=== PATIENT | male | born 1940 | race Caucasian/White ===

== ENCOUNTER 2020-03-22 07:14 | Outpatient (CLI) | payer MEDICARE, OTHER, SELFPAY ==
--- NOTE | 2020-03-22 07:15 | XR_ITS ---
WS: [id number] XR KUB [id number] REASON FOR EXAM: STONE FINDINGS: There is evidence of postop changes along the L4-5-S1 vertebra as on the right. With spacer s between L4-5, L5-S1. There is gas overriding the kidneys stones are not definitely seen. There is no stones in the region of the ureters or bladder. XR/XR KUB [id number] IMPRESSION: No definite stones are identified.
== END 2020-03-22 07:15 | disposition home or self-care (01) ==
LOC: RAD 07:19
PROVIDERS: PCP Family Medicine; Visit Provider Nurse Practitioner Family
DX: N20.0 Calculus of kidney (principal)
CPT/HCPCS: 74018; 81001

== ENCOUNTER 2020-04-04 10:15 | Outpatient (CLI) | payer MEDICARE, OTHER, SELFPAY ==
--- NOTE | 2020-04-04 10:15 | XRR_ITS ---
PROCEDURE INFORMATION: Exam: XR Abdomen, 1 View Exam date and time: 04/04/2020 10:43 AM Age: 79 years old Clinical indication: Condition or disease; Kidney or ureter condition; Calculus (stone) in ureter; Patient HX: Kidney stone check. Previous XR 03/22/20; Additional info: Stones TECHNIQUE: Imaging protocol: XR of the abdomen. Views: Frontal supine view of the abdomen. 1 View. COMPARISON: CR XR KUB [id number] 03/22/2020 7:32 AM FINDINGS: Gastrointestinal tract: No dilated gas-filled loops of bowel. Organs: No radiopaque renal or ureteral calculi are are visualized. Bones/joints: Prior lumbar spine fusion surgery. Multilevel disc degeneration in the lumbar spine. XR/XR KUB [id number] IMPRESSION: No radiopaque calculi visualized.
== END 2020-04-04 10:16 | disposition home or self-care (01) ==
LOC: RAD 10:18
PROVIDERS: PCP Family Medicine; Visit Provider Urology
DX: N20.1 Calculus of ureter (principal)
CPT/HCPCS: 74018; 81001

== ENCOUNTER 2020-04-16 14:03 | Outpatient (CLI) | payer MEDICARE, OTHER, SELFPAY ==
--- NOTE | 2020-04-16 14:30 | XRR_ITS ---
PROCEDURE INFORMATION: Exam: XR Abdomen, 1 View Exam date and time: 04/16/2020 2:24 PM Age: 79 years old Clinical indication: Condition or disease; Kidney or ureter condition; Calculus (stone) in ureter; Patient HX: Kidney stone follow up; Additional info: Ureteral calculus. Previous XR 04/04/20, 03/22/20 TECHNIQUE: Imaging protocol: XR of the abdomen. Views: Frontal supine view of the abdomen. 1 View. COMPARISON: CR XR KUB [id number] 04/04/2020 10:39 AM FINDINGS: Gastrointestinal tract: Normal. No bowel dilation. Bones/joints: Diffuse demineralization of the bones. Lumbar spinal hardware. Degenerative changes of the spine. XR/XR KUB [id number] IMPRESSION: No acute abnormality.
== END 2020-04-16 14:04 | disposition home or self-care (01) ==
PROVIDERS: PCP Family Medicine; Visit Provider Urology
DX: N20.1 Calculus of ureter (principal); N20.0 Calculus of kidney
CPT/HCPCS: 74018; 82365

== ENCOUNTER 2020-04-24 08:23 | Outpatient (CLI) | payer MEDICARE, OTHER, SELFPAY ==
--- NOTE | 2020-04-24 08:00 | CT_ITS ---
WS: [id number] CT ABDOMEN AND PELVIS NONCONTRAST HISTORY: KIDNEY STONE TECHNIQUE: Imaging performed through the abdomen and pelvis. Coronal and sagittal reformats are submi tted. All CT scans at [facility] use at least one of these dose optimization techniques: automated exposure control; mA and/or kV adjustment per patient size (includes targeted exams where d ose is matched to clinical indication); or iterative reconstruction. DLP: 1676.71 mGy.cm COMPARISON: 01/18/2017 Lower thorax: Chronic emphysema. Normal size heart. Small hiatal hernia. Liver: Normal size liver with several scattered hypodensities which are probably cysts. The largest i n the RIGHT lobe measures 2.5 cm. Gallbladder: Unremarkable. Pancreas: Normal. Spleen: Normal. Adrenal glands: Normal. Right kidney: Cortical atrophy with several cysts. Some of these cysts or low-attenuation some slight ly increased. No hydronephrosis. Nonobstructing 2 mm calcification in the lower pole. Stone within th e distal RIGHT ureter is no longer present. Left kidney: Normal size kidney with moderate perinephric stranding. No hydronephrosis. Nonobstructin g 4 mm calcification lower pole. Smaller calcification which is nonobstructing in the central pelvis. Previously described proximal ureteral calcifications are no longer present. Moderate atherosclerosis with no aneurysm. No free fluid, intraperitoneal air or significant lymphadenopathy. GI tract: Normal appendix. Mild diverticulosis. Abdominal wall: Intact. Pelvis: Markedly enlarged prostate gland measures 6.1 x 4.4 x 5.4 cm encroaching into the posterior u rinary bladder. Urinary bladder wall is diffusely thickened and hypertrophied. Small amount of fluid in the LEFT inguinal canal. Osseous structures: Straightening of the normal lumbar lordosis. Advanced degenerative changes in the facets and discs. Posterior lumbar fusion from L4 to S1. Interbody spacer at L4-5 and L5-S1. New com pression fracture of T12 since the prior CT of 01/18/2017 also new since the lumbar spine CT of 020. Compression fracture approximately 10%. CT/CT kidney stone [id number] IMPRESSION: 1. Resolved LEFT hydronephrosis. No residual calcifications in the proximal LE FT ureter. 2. Moderate to severe atrophy with acquired cysts RIGHT kidney with no residua l distal ureteral calcification. 3. Marked prostate gland enlargement with encroachment into the urinary bladde r. 4. New minimal compression fracture T12 since 03/13/2020. 5. Hepatic cysts and chronic emphysema.
== END 2020-04-24 08:24 | disposition home or self-care (01) ==
PROVIDERS: PCP Family Medicine; Visit Provider Urology
DX: N20.0 Calculus of kidney (principal); N26.1 Atrophy of kidney (terminal); Q61.02 Congenital multiple renal cysts; N40.0 Benign prostatic hyperplasia without lower urinary tract symptoms; M48.54XA Collapsed vertebra, not elsewhere classified, thoracic region, initial encounter for fracture; K76.89 Other specified diseases of liver; J43.9 Emphysema, unspecified; N20.1 Calculus of ureter
CPT/HCPCS: 74176; 81001

== ENCOUNTER 2021-04-29 13:29 | Outpatient (CLI) | payer MEDICARE, OTHER, SELFPAY ==
--- NOTE | 2021-04-29 13:45 | XR_ITS ---
WS: [id number] XR KUB [id number] REASON FOR EXAM: JOSEY RAL CALCULUS FINDINGS: No urinary tract calculi identified. Moderate amount of stool throughout the colon. Bowel gas pattern otherwise unremarkable. No free air or retroperitoneal air. No mass identified. Multilevel degenerative lumbar disc disease with previous surgery at L4-L5 and L5-S1. XR/XR KUB [id number] IMPRESSION: No urinary tract calculi identified.
== END 2021-04-29 13:30 | disposition home or self-care (01) ==
LOC: RAD 13:36
PROVIDERS: PCP Family Medicine; Visit Provider Urology
DX: N20.1 Calculus of ureter (principal)
CPT/HCPCS: 74018; 81003

== ENCOUNTER 2022-04-30 13:06 | Outpatient (CLI) | payer MEDICARE, OTHER, SELFPAY ==
--- NOTE | 2022-04-30 13:15 | XR_ITS ---
WS: [id number] Exam: XR KUB [id number] Date/Time of Exam: 04/30/2022 1:21 PM Reason For Exam: RENAL CALCULI Comparison 04/29/2021. No bowel obstruction or free air. Postoperative changes of the lower lumbar spine with hardware. No s ign of organ enlargement. 4 mm calcification superimposes the left kidney and may represent a renal s tone. Additional calcifications noted along the right and left paraspinal lumbar spine. These are non specific in appearance. Degenerative changes at all lumbar spine. XR/XR KUB [id number] IMPRESSION: 1. 4 mm calcification superimposing left kidney that may represent a renal ston e. 2. A of 10 x 5 mm calcification seen along the left paraspinal region at about the level of the L2-3 disc. This is nonspecific but this might represent a jv l pelvic or ureteral stone. 3. No acute finding.
== END 2022-04-30 13:07 | disposition home or self-care (01) ==
LOC: RAD 13:07
PROVIDERS: PCP Family Medicine; Visit Provider Urology
DX: N20.0 Calculus of kidney (principal); N40.1 Benign prostatic hyperplasia with lower urinary tract symptoms
CPT/HCPCS: 74018; 81003; 99213

== ENCOUNTER 2022-06-02 13:59 | Outpatient (CLI) | payer MEDICARE, OTHER, SELFPAY ==
--- NOTE | 2022-06-02 14:10 | XR_ITS ---
WS: [id number] Exam: XR KUB [id number] Date/Time of Exam: 06/02/2022 2:12 PM Reason For Exam: N20.0 - Calculus of kidney Comparison 04/30/2022. No bowel obstruction or free air. 4 mm calcification superimposes the left kidn ey and may represent a renal stone. A second 10 x 2 mm calcification along the left paraspinal region at the level of the L2-3 disc is nonspecific and unchanged in location. No sign of organ enlargement . Postoperative changes with hardware of the lower lumbar and upper sacral spine. Degenerative change s of the lumbar spine. XR/XR KUB [id number] IMPRESSION: 1. 4 mm calcification superimposing left kidney that may represent a renal ston e. A second 10 x 2 mm calcification along the left paraspinal region is unchang ed in location. 2. No acute abdominal process. Additional chronic nonemergent findings as above .
== END 2022-06-02 14:00 | disposition home or self-care (01) ==
LOC: RAD 14:00
PROVIDERS: PCP Family Medicine; Visit Provider Urology
DX: N40.1 Benign prostatic hyperplasia with lower urinary tract symptoms (principal); N26.1 Atrophy of kidney (terminal)
CPT/HCPCS: 74018; 81003; 99213

== ENCOUNTER 2022-06-26 08:20 | Outpatient (CLI) | payer MEDICARE, OTHER, SELFPAY ==
--- NOTE | 2022-06-26 08:30 | CT_ITS ---
WS: [id number] CT ABDOMEN PELVIS TECHNIQUE: Noncontrast CT of the abdomen and pelvis with coronal and sagittal reformatted images. CLINICAL INFORMATION: Renal Calculi COMPARISON: CT April 24, 2020 DLP: 1108.[address] scans at [facility] use at least one of these dose optimization techniques: automated e xposure control; mA and/or kV adjustment per patient size (includes targeted exams where dose is matc hed to clinical indication); or iterative reconstruction. FINDINGS: Moderate LEFT hydronephrosis with obstructing calculus at the UPJ. UPJ calculus measures 6 mm in shor t axis dimension. Inflammatory stranding and edema about the LEFT renal pelvis. LEFT calyceal tip collin culi. Distal LEFT ureter is decompressed. Atrophic RIGHT kidney. Bilateral renal cysts. No obstructing RIGHT renal or ureteral calculi. Bilater al renal cysts largest in the RIGHT upper pole measuring 4.0 x 3.9 CM. Lung bases are well aerated. Prostate measures 4.6 x 5.0 CM. Prostate calcification. Bladder wall thi ckening. Incidental stable hepatic cysts. Gallbladder is contracted. Small esophageal hiatal hernia. Fatty atr ophy of the pancreas. Normal noncontrast spleen. Normal caliber abdominal aorta. Aortic calcification . Adrenal glands are normal. Small amount of fluid along the LEFT inguinal canal. Sigmoid diverticulo sis. Normal appendix in the RIGHT lower quadrant. Postoperative changes pedicle screw fixation L4-S1 with interbody fusion. Advanced disc space narrowi ng L1-L2. CT/CT kidney stone [id number] IMPRESSION: 1. Moderate LEFT hydronephrosis. Obstructing 6.0 x 5.2 x 9.4 mm mm calculus at the LEFT UPJ. Small amount of inflammatory stranding and edema about the UPJ a nd renal pelvis. Distal LEFT ureter is decompressed. 2. RIGHT renal atrophy. Bilateral renal cysts largest on the RIGHT measuring 4 .0x3.9 cm. 3. Stable incidental hepatic cysts. 4. Small esophageal hiatal hernia. 5. Enlarged heterogeneous prostate measuring 4.6 x 5.0 cm.Recommend correlatio n PSA. Chronic bladder outlet obstruction. 6. No other acute findings.
== END 2022-06-26 08:21 | disposition home or self-care (01) ==
LOC: RAD 08:20
PROVIDERS: PCP Family Medicine; Visit Provider Urology
DX: N20.1 Calculus of ureter (principal); N40.1 Benign prostatic hyperplasia with lower urinary tract symptoms
CPT/HCPCS: 74176; 99214

== ENCOUNTER 2022-07-15 05:44 | Day surgery (SDC) | payer MEDICARE, OTHER, SELFPAY ==
[2022-07-10 10:26] VITALS: BMI 33.3
--- NOTE | 2022-07-10 10:50 | ECG_ITS ---
[facility] Test Date: 2022-07-10 Pat Name: Oj Retana Department: Room: Gender: Male Librarian: : 1940 Requested By: Sosa Sanchez Order Number: [id number] Beulah MD: Joe Levin M.D. Measurements Intervals [place] Rate: 73 P: 72 IL: 176 QRS: -75 QRSD: 179 T: 85 QT: 444 QTc: 491 Interpretive Statements ELECTRONIC VENTRICULAR PACEMAKER Compared to ECG 01/19/2017 10:58:51 Sinus rhythm no longer present Right bundle-branch block no longer present Left anterior fascicular block no longer present Electronically Signed On 07-10-2022 14:49:01 CDT by Joe Levin M.D. [id number]
[2022-07-10 10:54] LABS: Basophils % 0.3 %; Eosinophils # 0.3 10^3/uL (0.0-0.8); Hematocrit 39.3 % (42.0-52.0); Hemoglobin 13.3 g/dL (11.7-16.6); Lymphocytes # 1.8 10^3/uL (0.8-4.8); Mean Corpuscular HGB Conc 33.8 g/dL (30.0-36.0); Mean Corpuscular Hemoglobin 33.6 pg (28.0-34.0); Mean Corpuscular Volume 99.2 fl (80-94); Mean Platelet Volume 9.3 fL (7.4-10.4); Monocytes # 0.7 10^3/uL (0.2-0.9); Monocytes % 9.6 %; Neutrophils # 4.53 10^3/uL (1.8-7.7); Neutrophils % 61.8 %; Nucleated Red Blood Cells % 0 %; Platelet Count 165 10^3/cmm (130-400); Red Blood Count 3.96 10^6/uL (4.1-5.3); Red Cell Distribution Width 12.3 % (12.1-15.1); White Blood Count 7.3 10^3/uL (4.0-10.0)
[2022-07-10 11:19] LABS: Alanine Aminotransferase 13 U/L (0-41); Albumin Level 3.4 g/dL (3.5-5.2); Alkaline Phosphatase 111 U/L (40-130); Aspartate Amino Transferase 14 U/L (0-40); Blood Urea Nitrogen 14 mg/dL (8-23); Calcium 8.9 mg/dL (8.5-10.5); Carbon Dioxide 26 mmol/L (22-29); Chloride 105 mmol/L (98-107); Globulin 2.6 g/dL (1.3-4.6); Glucose 84 mg/dL (65-115); Osmolality Calculated 290 mOsm/kg (285-295); Sodium 140 mmol/L (136-145); Total Bilirubin 0.4 mg/dL (0.15-1.2)
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
[2022-07-15] VITALS (10 sets, daily range): BP systolic 110–131; BP diastolic 67–96; PULSE 68–87; RESP 12–18; TEMP 36.2–36.6; O2SAT 92–98
--- NOTE | 2022-07-15 | SCC_ITS ---
Procedure done: 1. Cystoscopy, LEFT: Retrograde, ureteroscopy, laser, stent 56.4 seconds of fluoroscopic guidance, for a cumulative dose of 15.4 mGy, was provided to Dr. Nguyen by the radiology department. C-arm images of the abdomen were saved for the patient's permanent record. [facility]
--- NOTE | 2022-07-15 05:51 | P.HPUD_ITS ---
Surgery/Procedure H&P Update DATE OF PROCEDURE: July 15, 2022 DATE H&P PERFORMED: 06/26/22 H&P UPDATE INFORMATION: I have reviewed H&P completed within last 30 days, I have examined patient prior to procedure, No changes to prior documentation and H&P is in [facility] EMR on date indicated PREOP DIAGNOSIS: Kidney stones PLANNED PROCEDURE: Operation Date: 07/15/22 07:00 Proposed Procedures p CYSTOSCOPY RETROGRADE URETEROSCOPY LASER STENT 06965 [id number] MODIFIER 26N20.9,N20.1(Not Applicable) - Simba Nguyen MD s Retrograde Pyelogram(Left) - MD isabel Uribe Ureteroscopy(Left) - MD isabel Uribe Laser Lithotripsy(Left) - MD isabel Uribe Ureteral Stent Placement(Left) - Simba Nguyen MD
--- NOTE | 2022-07-15 06:37 | P.ANESUD_ITS ---
Pre-Anesthetic Update Pre-Anesthetic Assessment: Date of Surgery/Procedure: 07/15/22 Preop Nery gnosis: Refractory left UPJ stone with obstruction Proposed Procedure: Operation Date: 07/15/22 07:00 Proposed Procedures p CYSTOSCOPY RETROGRADE URETEROSCOPY LASER STENT 43976 [id number] MODIFIER 26N20.9,N20.1(Not Applicable) - Simba Nguyen MD s Retrograde Pyelogram(Left) - MD isabel Uribe Ureteroscopy(Left) - MD isabel Uribe Laser Lithotripsy(Left) - MD isabel Uribe Ureteral Stent Placement(Left) - Simba Nguyen MD Any changes to Pre-Anesthetic Assessment?: No Last Intake: Intake Last Liquid Date 07/14/22 Last Liquid Time 23:30 Last Solid Date 07/14/22 Last Solid Time 23:30 Vitals: Temperature 97.9 F 07/15/22 06:13 Temperature Source Temporal Artery S can 07/15/22 06:13 Pulse Rate 81 07/15/22 06:13 Respiratory Rate 18 07/15/22 06:13 Blood Pressure 120/77 07/15/22 06:13 Blood Pressure Kelley n 91 07/15/22 06:13 Pulse Oximetry 95 07/15/22 06:13 Oxygen Delivery Me thod 07/15/22 06:16 Exam: Pre-Anes Outpt Exam: alert, oriented x 3, clear to auscultation bilaterally and regular rate & rhythm Cardiac Studies: No Data to Display
[2022-07-15] MEDS: sodium chloride 0.9% 1,000 ML 30 ML IV (06:42)
--- NOTE | 2022-07-15 06:43 | SC_ITS ---
WS: [id number] INTRAOPERATIVE TECHNIQUE: 3 Spot fluoroscopic images for intraoperative purposes. FLUOROSCOPY TIME: 56.4 seconds CLINICAL INFORMATION: ureteral stone COMPARISON: None. FINDINGS: LEFT ureterogram with deployment of double-J ureteral stent. Previously described obstructing 6 mm pr oximal ureteral calculus. SC/C-arm FL for Urology IMPRESSION: Images obtained for intraoperative purposes.
--- NOTE | 2022-07-15 06:58 | P.OP_ITS ---
Operative Report Date of procedure: July 15, 2022 Pre-op diagnosis: Refractory left UPJ stone with obstruction Post-op diagnosis: Refractory left UPJ stone with obstruction Procedure done: 1. Cystoscopy, LEFT: Retrograde, ureteroscopy, laser, stent Implants: Left ureteral stent Specimens removed/disposition: Stone fragments Pathology: Stone fragments Surgeon: Wendy Estimated blood loss: Minimal Urine output: Not measured Complications: None Findings: Anesthesia: General Condition: Stable Disposition: PACU Intraoperative findings: * Stone was impacted in the left proximal ureter but completely cleared with laser lithotripsy * Second stone which was located in the lower pole calyx was also completely fragmented utilizing flexible ureteroscopy. Brief History: Mr. Pabon is a very pleasant 81-year-old white male recently diagnosed with a large left UPJ stone with obstructive changes. Also has a small left lower pole stone located posteriorly in the kidney discussed all options and ultimately elected endoscopic treatment Procedure: After routine preoperative evaluation examination and obtaining of informed consent was taken to the operating suite on 07/15/2022 where general anesthesia was administered without difficulty after appropriate timeout was performed, SCDs confirmed to be functioning, preoperative antibiotics administered, beta- amando protocol confirmed. Prepped and draped in usual sterile fashion dorsolithotomy position paying careful attention to avoiding pressure points. 21 Singaporean cystoscope with 30 degree lens was introduced into the urethra meatus and advanced into the bladder to videoscopy. Bladder was systematically examined. No stones were seen. No gross abnormalities identified. An 8 Singaporean cone-tip catheter was intubated to the left ureteral orifice for left retrograde ureteropyelogram demonstrating: Flexible tip guidewire was then advanced up the left ureter easily bypassing the stone and curling in the area of the upper pole calyx. The distal ureter was then dilated with a 15 Singaporean 4 cm balloon with no waist. A second guidewire was then passed. The first wire was secured to the drapes as a safety wire and the second uses a working wire. A 38 cm ureteral access sheath was easily advanced up the working wire to just below the level of the stone. The inner sheath was removed and the 7 Singaporean offset semirigid ureteroscope was advanced up the ureteral access sheath over the guidewire. The stone was encountered in expected position and the wire was removed. 365 ?m thulium superpulse laser fiber was utilized to fragment the stone to small pieces. There was adherence of the stone to the anterior aspect of the ureter at the location. There was a lot of inflammation in the ureter as well. All of the stone was freed up from the ureter. Some of the migrated into the renal pelvis. The offset scope was exchanged for a flexible scope which was advanced through the sheath into the renal pelvis and any fragments that had migrated up of any consequence and size were then fragmented in the renal pelvis and some of the calyces. The stone in the lower posterior aspect calyx was identified and fragmented as well. All the calyces were carefully inspected and no significant fragments remained. Mostly sand and very tiny pieces. There was minimal bleeding. Visualization was very good. The sheath was then backloaded onto the hub of the scope and the ureter was carefully inspected as the scope was removed. The impaction site of the stone was free of all debris and stone fragments. It was deemed that this area would require stent for healing purposes. The remainder of the ureter was fine. Cystoscope was then backloaded over the safety guidewire and a 7 Singaporean by 26 mm double-pigtail stent was advanced over the guidewire through the cystoscope into appropriate position as confirmed via fluoroscopy and cystoscopy. Bladder was drained. Stent was confirmed to be functioning. He tolerated procedure well without complications and was awakened in the operating room and returned to PACU in stable condition. PLANS: 1. Anticipate discharge from outpatient surgery 2. Maintain stent for 2 weeks and then removal in my office. 3. KUB before stent removal on day of clinic visit
[2022-07-15] MEDS: levofloxacin-dextrose 5 % 500 MG/100 ML PREMIX 100 MG IV (07:00)
--- NOTE | 2022-07-15 13:51 | ANE.PACU2 ---
Inpatient post-anesthesia follow up: Airway intact: Yes Vital signs: Temperature 97.9 F Pulse Rate 78 Respiratory Rate 16 Blood Pressure 126/96 Pulse Oximetry 95 Oxygen Delivery Me thod Room Air Oxygen Flow Rate 3 Fraction of Inspir ed Oxygen Hydration adequate: Yes Nausea and vomiting: No Pain level: 1 Mental status: Baseline
[2022-07-21 18:26] LABS: Stone Source URETERAL STONE
== END 2022-07-15 09:30 | disposition home or self-care (01) ==
PROVIDERS: PCP Family Medicine; Visit Provider Urology
PROC: 0TJB8ZZ Inspection of Bladder, Via Natural or Artificial Opening Endoscopic (ICD-10-PCS; CPT 52000; principal; 2022-07-15 07:00)
PROC: (CPT 74420; 2022-07-15 07:00)
PROC: 0TJ98ZZ Inspection of Ureter, Via Natural or Artificial Opening Endoscopic (ICD-10-PCS; CPT 52351; 2022-07-15 07:00)
PROC: (CPT 52356; 2022-07-15 07:00)
PROC: (CPT 50605; 2022-07-15 07:00)
DX: N20.1 Calculus of ureter (principal); J44.9 Chronic obstructive pulmonary disease, unspecified; G47.30 Sleep apnea, unspecified; Z95.0 Presence of cardiac pacemaker; I25.10 Atherosclerotic heart disease of native coronary artery without angina pectoris; Z95.5 Presence of coronary angioplasty implant and graft; I10 Essential (primary) hypertension; I25.2 Old myocardial infarction; N40.0 Benign prostatic hyperplasia without lower urinary tract symptoms; K21.9 Gastro-esophageal reflux disease without esophagitis; E78.5 Hyperlipidemia, unspecified; F03.90 Unspecified dementia, unspecified severity, without behavioral disturbance, psychotic disturbance, mood disturbance, and anxiety; Z87.891 Personal history of nicotine dependence
CPT/HCPCS: 52356; 76000; 80053; 82365; 85025; 88300; 93005; C2625; J0330; J1100; J1956; J2370; J2405; J2704; J2710; J3010; J3490; J7030

== ENCOUNTER 2022-07-31 10:22 | Outpatient (CLI) | payer MEDICARE, OTHER, SELFPAY ==
--- NOTE | 2022-07-31 10:28 | XR_ITS ---
WS: [id number] Exam: XR KUB [id number] Date/Time of Exam: 07/31/2022 10:35 AM Reason For Exam: STONES No bowel obstruction or free air. A left-sided ureteral catheter is in place appearing to be in appro priate location. Fusion hardware noted in the lumbosacral spine. No sign of organ enlargement. Bony s tructures are otherwise intact. Degenerative changes of the L-spine. XR/XR KUB [id number] IMPRESSION: 1. No acute abdominal process. 2. Left-sided ureteral catheter in place appearing to be in appropriate locatio n. 3. Degenerative and postoperative changes in the lumbar spine.
== END 2022-07-31 10:23 | disposition home or self-care (01) ==
LOC: RAD 10:24
PROVIDERS: PCP Family Medicine; Visit Provider Urology
DX: N20.1 Calculus of ureter (principal); M47.896 Other spondylosis, lumbar region
CPT/HCPCS: 52310; 74018

== ENCOUNTER 2022-10-16 07:38 | Outpatient (CLI) | payer MEDICARE, OTHER, SELFPAY ==
--- NOTE | 2022-10-16 07:45 | XR_ITS ---
WS: [id number] XR KUB [id number] REASON FOR EXAM: Urolithiasis FINDINGS: The left ureteral stent is been removed. No ureteral calculi are identified. No other significant abnormality of the abdomen. Postoperative lumbar spine. XR/XR KUB [id number] IMPRESSION: Ureteral stent removal. No urinary tract calculi identified.
== END 2022-10-16 07:39 | disposition home or self-care (01) ==
LOC: RAD 07:39
PROVIDERS: PCP Family Medicine; Visit Provider Urology
DX: N40.1 Benign prostatic hyperplasia with lower urinary tract symptoms; N20.2 Calculus of kidney with calculus of ureter
CPT/HCPCS: 74018; 81003; 99213

== ENCOUNTER 2022-10-23 08:38 | Outpatient (CLI) | payer MEDICARE, OTHER, SELFPAY ==
--- NOTE | 2022-10-23 09:00 | CT_ITS ---
WS: [id number] CT ABDOMEN AND PELVIS NONCONTRAST HISTORY: Right Ureteral Calculus TECHNIQUE: Imaging performed through the abdomen and pelvis. Coronal and sagittal reformats are submi tted. All CT scans at [facility] use at least one of these dose optimization techniques: auto mated exposure control; mA and/or kV adjustment per patient size (includes targeted exams where dose is matched to clinical indication); or iterative reconstruction. DLP: 797.49 mGy.cm COMPARISON: 07/15/2015 and 06/26/2022 Lower thorax: Lung bases are clear. Visualized heart is normal. No hiatal hernia. Liver: Normal size. Previously described hepatic cysts are reidentified. Gallbladder: Normal gallbladder. Pancreas: Diffuse fatty replacement. Spleen: Normal. Adrenal glands: Normal. No mass. Right kidney: Diffuse atrophy and cortical thinning. Multiple cortical cysts and hyperdense cysts are reidentified. No hydronephrosis. No ureteral calcification. Left kidney: Mild diffuse perinephric stranding. No renal or ureteral calcification. No obstruction. Aorta: Mild atherosclerosis abdominal aorta with no aneurysm. No free fluid, intraperitoneal air or significant lymphadenopathy. GI tract: Stomach is not distended. No small bowel obstruction. Normal appendix. There are a few scat tered sigmoid diverticula without acute diverticulitis. Abdominal wall: Small umbilical hernia contains fat only. Pelvis: Patent inguinal canals containing fat and fluid. No herniation of the GI tract. Minimally dis tended urinary bladder with mild bladder wall thickening. Prostate gland encroaches into the urinary bladder. Central prostate calcifications. Osseous structures: Prior lumbar fusion and interbody spacers at L4-5 and L5-S1. Mild anterior wedgin g of T12. CT/CT abdomen pelvis wo con [id number] IMPRESSION: 1. No ureteral calcifications or obstruction. 2. Chronic atrophy and cortical cyst RIGHT kidney are stable. 3. Stable hepatic cysts. 4. Atherosclerosis aorta. 5. Prostate gland enlargement.
== END 2022-10-23 08:39 | disposition home or self-care (01) ==
LOC: RAD 08:47
PROVIDERS: PCP Family Medicine; Visit Provider Urology
DX: N20.9 Urinary calculus, unspecified (principal); N20.1 Calculus of ureter
CPT/HCPCS: 74176; 99213